=== PATIENT | male | born 1965 | race Caucasian/White ===

== ENCOUNTER 2019-02-27 00:59 | Inpatient (IN) | payer OTHER ==
[~2019-02-27] VITALS: Ht 167.6 cm; Wt 63.5 kg
[2019-02-27] MEDS ORDERED: KETOROLAC 30 MG/1 ML ONE (01:20)
[2019-02-27] MEDS ORDERED: DEXAMETHASONE 4 MG/ML, 5ML ONE (01:20)
[2019-02-27] MEDS ORDERED: MORPHINE SULFATE 4 MG/ML, 1ML ONE (01:21)
[2019-02-27] MEDS ORDERED: KETOROLAC 30 MG/1 ML IVPush ONE (01:30)
[2019-02-27] MEDS ORDERED: MORPHINE SULFATE 4 MG/ML, 1ML IVPush PRN (01:30)
[2019-02-27] MEDS ORDERED: DEXAMETHASONE 4 MG/ML, 1ML IV ONE (01:30)
[2019-02-27] MEDS ORDERED: SODIUM CHLORIDE FLUSH 10ML SYR IVF ONE (01:30)
--- NOTE | 2019-02-27 01:41 | NUR ---
BREAK RN: IV ESTABLISHED, BLOOD DRAWN, PT. MEDICATED PER MAR. CONTINUOUS PULSE OX AND B/P MONITORS IN PLACE. CALL LIGHT IN REACH. ALL SAFETY MEASURES OBSERVED. FAMILY AT BS FOR SUPPORT. PT. AWARE OF PLAN FOR CT. REPORT TO SONIA MURRAY TO ASSUME CARE OF PT.
[2019-02-27 01:49] LABS: BASOPHILS # (AUTO) 0.05 x10^3/uL (0-0.1); BASOPHILS % (AUTO) 0 % (0-1); EOSINOPHILS # (AUTO) 0.11 x10^3/uL (0-0.4); EOSINOPHILS % (AUTO) 1 % (1-7); LYMPHOCYTES # (AUTO) 1.59 x10^3/uL (1-3.4); LYMPHOCYTES % (AUTO) 14 % (22-44); MD NO; MEAN CORPUSCULAR HEMOGLOBIN 33.1 pg (27.5-34.5); MEAN CORPUSCULAR HGB CONC 33.9 g/dL (33.2-36.2); MEAN CORPUSCULAR VOLUME 97.7 fL (81-97); MEAN PLATELET VOLUME 7.4 fL (7.4-10.4); MONOCYTES # (AUTO) 0.94 x10^3/uL (0.2-0.8); MONOCYTES % (AUTO) 8 % (2-9); NEUTROPHILS # (AUTO) 8.84 x10^3/uL (1.8-6.8); NEUTROPHILS % (AUTO) 77 % (42-75); PLATELET COUNT 223 x10^3/uL (130-400); RED BLOOD COUNT 4.38 x10^6/uL (4.38-5.82); RED CELL DISTRIBUTION WIDTH 13.4 % (9.4-14.8)
[2019-02-27 02:01] LABS: ALBUMIN 3.5 g/dL (3.4-5.0); ANION GAP 9 mmol/L (5-15); CHLORIDE 106 mmol/L (98-107); CREATININE 0.72 mg/dL (0.7-1.3)
[2019-02-27] MEDS ORDERED: OMNIPAQUE 350 MG/ML, 100ML BOTTLE ONE (02:24)
--- NOTE | 2019-02-27 02:31 | NUR ---
Pt resting comfortably in [facility], awaiting CT scan results.
--- NOTE | 2019-02-27 03:23 | NUR ---
laborer syrup machine at bedside for labs, blood c/x x2
[2019-02-27] MEDS ORDERED: AMPICILLIN/SULBACTAM 3 GM in SODIUM CHLORIDE 0.9% 100 ML IV ONE (03:30)
[2019-02-27] MEDS ORDERED: SODIUM CHLORIDE 0.9% 1,000ML IVBOLUS ONE (03:30)
--- NOTE | 2019-02-27 03:41 | NUR ---
Vitals rechecked, IV abx administered. Pt resting, call light within reach, side rails up. Pt's son at bedside.
[2019-02-27] MEDS ORDERED: POTASSIUM CHLORIDE 20 MEQ, MAGNESIUM SULFATE 2 GM, THIAMINE 200 MG, MVI ADULT 10 ML, FO... IV SCH (04:49)
[2019-02-27] MEDS ORDERED: PROMETHAZINE 25 MG/ML, 1ML IM PRN (05:00)
[2019-02-27] MEDS ORDERED: LABETALOL 5MG/ML, 20ML IVPush PRN (05:00)
[2019-02-27] MEDS ORDERED: morphine SULFATE 10 MG/ML, 1ML IVPush PRN (05:00)
[2019-02-27] MEDS ORDERED: ONDANSETRON 2MG/ML, 2ML IVPush PRN (05:00)
[2019-02-27] MEDS ORDERED: ASPI-650 PO (06:13)
[2019-02-27 06:22] VITALS: BP 150/90
[2019-02-27] MEDS: ACETAMINOPHEN 325 MG TABLET PO SCH ×3 (07:28→20:26)
[2019-02-27] MEDS ORDERED: LORazepam 2 MG/ML, 1ML IV PRN ×2 (07:30)
[2019-02-27] MEDS ORDERED: LORazepam 0.5MG TABLET PO PRN (07:30)
[2019-02-27] MEDS ORDERED: LORazepam 1MG TABLET PO PRN (07:30)
[2019-02-27] MEDS: KETOROLAC 30 MG/1 ML IVPush SCH ×3 (08:04→20:26)
[2019-02-27] MEDS: SODIUM CHLORIDE 0.9% 1,000 ML IV SCH ×2 (08:04→22:00)
[2019-02-27] MEDS: ENOXAPARIN 40 MG/0.4 ML SQ SCH (08:05)
[2019-02-27 08:13] VITALS: BP 128/84
[2019-02-27 08:44] LABS: RAPID INFLUENZA A Negative (Negative); RAPID INFLUENZA B Negative (Negative)
[2019-02-27] MEDS: AMPICILLIN/SULBACTAM 3 GM in SODIUM CHLORIDE 0.9% 100 ML IV SCH ×3 (09:44→22:00)
[2019-02-27 14:05] VITALS: BP 144/78
[2019-02-27 19:13] VITALS: BP 130/83
[2019-02-28 01:52] VITALS: BP 136/88
[2019-02-28] MEDS: KETOROLAC 30 MG/1 ML IVPush SCH ×2 (01:58→08:13)
[2019-02-28] MEDS: ACETAMINOPHEN 325 MG TABLET PO SCH ×2 (01:59→08:13)
[2019-02-28] MEDS: AMPICILLIN/SULBACTAM 3 GM in SODIUM CHLORIDE 0.9% 100 ML IV SCH ×2 (03:49→09:30)
[2019-02-28 05:42] LABS: BASOPHILS # (AUTO) 0.04 x10^3/uL (0-0.1); BASOPHILS % (AUTO) 0 % (0-1); EOSINOPHILS # (AUTO) 0.03 x10^3/uL (0-0.4); EOSINOPHILS % (AUTO) 0 % (1-7); LYMPHOCYTES # (AUTO) 1.89 x10^3/uL (1-3.4); LYMPHOCYTES % (AUTO) 18 % (22-44); MD NO; MEAN CORPUSCULAR HEMOGLOBIN 32.9 pg (27.5-34.5); MEAN CORPUSCULAR VOLUME 99.7 fL (81-97); MEAN PLATELET VOLUME 7.4 fL (7.4-10.4); MONOCYTES # (AUTO) 0.95 x10^3/uL (0.2-0.8); MONOCYTES % (AUTO) 9 % (2-9); NEUTROPHILS # (AUTO) 7.36 x10^3/uL (1.8-6.8); NEUTROPHILS % (AUTO) 72 % (42-75); PLATELET COUNT 188 x10^3/uL (130-400); RED BLOOD COUNT 3.55 x10^6/uL (4.38-5.82); RED CELL DISTRIBUTION WIDTH 13.2 % (9.4-14.8)
[2019-02-28] MEDS: ENOXAPARIN 40 MG/0.4 ML SQ SCH (07:30)
[2019-02-28 09:32] VITALS: BP 128/81
[2019-02-28] MEDS ORDERED: ACET325T26 PO (10:22)
[2019-02-28] MEDS ORDERED: AMOX1TAB64 PO (10:22)
== END 2019-02-28 11:19 | disposition home or self-care (01) | DRG 153 ==
LOC: ED 04:13 → EDIP 04:17 → 3N 05:29 → DCLOUNGE 02-28 11:15
PROVIDERS: ADMIT Family Medicine; ATTEND Family Medicine
DX: J39.0 Retropharyngeal and parapharyngeal abscess (principal); R65.10 Systemic inflammatory response syndrome (SIRS) of non-infectious origin without acute organ dysfunction; I10 Essential (primary) hypertension; G89.29 Other chronic pain; F10.20 Alcohol dependence, uncomplicated; M54.2 Cervicalgia; J39.1 Other abscess of pharynx; M47.812 Spondylosis without myelopathy or radiculopathy, cervical region; Z87.891 Personal history of nicotine dependence; Z83.3 Family history of diabetes mellitus; Z82.49 Family history of ischemic heart disease and other diseases of the circulatory system; Z80.1 Family history of malignant neoplasm of trachea, bronchus and lung; Z83.6 Family history of other diseases of the respiratory system; Z79.82 Long term (current) use of aspirin
CPT/HCPCS: 36415; 84145; 87400; J7042; 70491; 80048; 82040; 83605; 85025; 86308; 87040; 87081; 87880; 96374; G0378; J0295; J1100; J1650; J1885; J3411; J3475; J3480; Q9967; J2270; J7030